=== PATIENT | female | born 1930 | race Caucasian/White ===

== ENCOUNTER 2020-01-11 10:30 | Observation (INO) | payer MEDICARE ==
[2020-01-11] VITALS (14 sets, daily range): BP systolic 111–173; BP diastolic 55–93
[~2020-01-11] VITALS: Ht 162.6 cm; Wt 81.6 kg
[2020-01-11] MEDS ORDERED: XANAX 0.25 MG0.25 MG PO (11:35)
[2020-01-11] MEDS ORDERED: AMITRIPTYLINE H10 M1 PO (11:35)
[2020-01-11] MEDS ORDERED: LIPITOR10 MG PO (11:36)
[2020-01-11] MEDS ORDERED: CHILDREN'S ASPI81 M1 PO (11:36)
[2020-01-11] MEDS ORDERED: LASIX 40 MG TAB40 MG PO (11:37)
[2020-01-11] MEDS ORDERED: ISOSORBIDE DINI30 MG PO (11:37)
[2020-01-11] MEDS ORDERED: LEVO-T100 MCG PO (11:38)
[2020-01-11] MEDS ORDERED: LISINOPRIL2.5 MG PO (11:38)
[2020-01-11] MEDS ORDERED: NITROSTAT0.3 MG SUBLING (11:39)
[2020-01-11] MEDS ORDERED: TOPROL XL50 MG PO (11:39)
[2020-01-11] MEDS ORDERED: CARAFATE 1 GM TA1 GM PO (11:40)
[2020-01-11] MEDS ORDERED: KLOR-CON 10 ER10 MEQ PO (11:40)
[2020-01-11 12:03] LABS: HEMATOCRIT 39.6 % (37.0-47.0); HEMOGLOBIN 13.4 gm/dL (12.0-15.0); MCH 28.7 pg (26.0-34.0); MCHC 33.7 g/dL (28.0-37.0); MCV 85.2 fL (80.0-100.0); MPV 10.9 fl. (7.2-11.1); RBC 4.65 mil/uL (4.20-5.00); RDW-CV 13.8 % (10.5-14.5); WBC 5.8 thou/uL (4.0-11.0)
[2020-01-11 12:11] LABS: ANION GAP 8 mmol/L (7-16); BUN 21 mg/dL (7-18); CALCIUM 8.7 mg/dL (8.5-10.1); CHLORIDE 102 mmol/L (98-107); CO2 30 mmol/L (21-32); CREATININE 0.9 mg/dL (0.6-1.3); GLUCOSE 94 mg/dL (70-99); POTASSIUM 4.7 mmol/L (3.5-5.1); SODIUM 140 mmol/L (136-145)
[2020-01-11 12:12] LABS: APTT 26.1 Seconds (25.0-31.3); PROTIME 10.7 Seconds (9.20-11.50)
[2020-01-11 12:15] LABS: ALBUMIN 3.5 g/dL (3.4-5.0); ALKALINE PHOSPHATASE 84 U/L (46-116); CHOLESTEROL 138 mg/dL (<200); HDL CHOLESTEROL 45 mg/dL (>40); LDL CHOLESTEROL 78 mg/dL (<100); SGOT 24 U/L (15-37); SGPT 26 U/L (30-65); TC:HDL 3.1 Ratio (Not establshd); TOTAL BILIRUBIN 0.8 mg/dL (<0.1-1.0); TOTAL PROTEIN 7.4 g/dL (6.4-8.2); TRIGLYCERIDE 78 mg/dL (<150); VLDL 16 mg/dL (<40)
[2020-01-11 12:19] LABS: SERUM ASSESSMENT Clear
--- NOTE | 2020-01-11 18:13 | NUR ---
PT ADMITTED TO ROOM 225 VIA CART FROM [facility] AT APPROXIMATELY 1700. REPORT RECEIVED FROM GUERITA ROLAND. PT ORIENTED TO ROOM AND CALL LIGHT. ADMISSION ASSESSMENT AND HISTORY COMPLETED. REFER TO CHARTING. PT A&0X4. DENIES ANY PAIN OR SHORTNESS OF BREATH AT THIS TIME. 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 ON RA SAT UPPER 90'S. PURE WICK IN PLACE PER PT REQUEST. RIGHT GROIN CATH ACCESS-SITE IS C/D/I WITH NO HEMATOMA NOTED. PT ON BEDREST UNTIL 1949. PT INSTRUCTED ON IMMOBILIZATION OF RIGHT LOWER EXTREMITY AND COMMUNICATES UNDERSTANDING OF TEACHING. POST CARDIAC CATH ASSESSMENT AND VITALS CHARTED. PT UP WITH SBA POST BEDREST. HOME MEDICATIONS RECONCILED. SON AT BEDSIDE AND UPDATED ON CURRENT PLAN OF CARE. IVF. MEDICATIONS PER JAN. PT STATES SHE LIVES AT HOME BY HER SELF AND HER SON DOESNT LIVE FAR AWAY AND CHECKS IN ON HER OCCASIONALLY. PT REPOSITIONS SELF. HOURLY ROUNDING OBSERVED. BED IN LOW POSITION. CALL LIGHT WITHIN REACH. WILL CONTINUE PLAN OF CARE.
[2020-01-12] VITALS: BP 111/51; BP 170/86
[2020-01-12 04:00] VITALS: BP 142/40
[2020-01-12 04:17] LABS: HEMATOCRIT 39.3 % (37.0-47.0); HEMOGLOBIN 13.2 gm/dL (12.0-15.0); MCHC 33.7 g/dL (28.0-37.0); MPV 11.2 fl. (7.2-11.1); RBC 4.56 mil/uL (4.20-5.00); RDW-CV 13.5 % (10.5-14.5); WBC 9.7 thou/uL (4.0-11.0)
[2020-01-12 04:45] LABS: ALBUMIN 3.1 g/dL (3.4-5.0); CALCIUM 8.1 mg/dL (8.5-10.1); CREATININE 0.8 mg/dL (0.6-1.3); TOTAL PROTEIN 6.8 g/dL (6.4-8.2); TROPONIN-I LEVEL 0.28 ng/mL (<0.06)
[2020-01-12 08:10] VITALS: BP 171/58
--- NOTE | 2020-01-12 11:12 | EKG ---
[place] [address] ELECTROCARDIOGRAM REPORT Name: AME BARROSO Room: [address] M.R.#: [id number] Admission: 01/11/20 Attend Phys: Fransico George Discharge: Date of : [birth year] Date of Service: 01/11/20 1108 Report #: [id number] THIS REPORT FOR: //name// [facility] Test Date: 2020-01-11 Test Time: 11:08:50 Pat Name: AME BARROSO Department: Room: [facility] Gender: F Impression Printer: : 1930 Requested By: Luisito Cerda Order Number: [id number] Mariia MD: Jermaine Umana Measurements Intervals [place] Rate: 65 P: 80 [place]: 239 QRS: -29 QRSD: 108 T: 83 QT: 447 QTc: 465 Interpretive Statements Sinus arrhythmia Ventricular premature complex Prolonged [place] interval Left ventricular hypertrophy Anterior ST elevation, probably due to LVH No previous ECG available for comparison Electronically Signed On 01-12-2020 11:11:12 FIRE EXTINGUISHER MECHANIC by Jermaine Umana [email or web address] <ELECTRONICALLY SIGNED> By: Jermaine Umana MD, FACC 01/12/20 1111 1108 1108 Jermaine Umana MD, FAC /EPI
--- NOTE | 2020-01-12 11:16 | EKG ---
[place] [address] ELECTROCARDIOGRAM REPORT Name: AME BARROSO Room: [address] M.R.#: [id number] Admission: 01/11/20 Attend Phys: Fransico George Discharge: Date of : [birth year] Date of Service: 01/11/20 1419 Report #: [id number] THIS REPORT FOR: //name// [facility] Test Date: 2020-01-11 Test Time: 14:19:01 Pat Name: AME BARROSO Department: Room: [facility] Gender: F Chronic Condition Nurse: NAINA : 1930 Requested By: Luisito Cerda Order Number: [id number] Mariia MD: Jermaine Umana Measurements Intervals [place] Rate: 95 P: 94 [place]: 217 QRS: -48 QRSD: 110 T: 104 QT: 386 QTc: 486 Interpretive Statements Sinus rhythm Prolonged [place] interval Anteroseptal infarct age indeterminate possible Premature atrial complex LVH with IVCD, LAD and secondary repol abnrm Borderline prolonged QT interval No previous ECG available for comparison Electronically Signed On 01-12-2020 11:15:06 [employer] FAC[employer]Y by Jermaine Umana [email or web address] <ELECTRONICALLY SIGNED> By: Jermaine Umana MD, FAC 01/12/20 1115 1419 1419 Jermaine Umana MD, FAC /EPI
--- NOTE | 2020-01-12 11:22 | EKG ---
[place] [address] ELECTROCARDIOGRAM REPORT Name: MAE BARROSO Room: [address] M.R.#: [id number] Admission: 01/11/20 Attend Phys: Fransico George Discharge: Date of : [birth year] Date of Service: 01/12/20819 Report #: [id number] THIS REPORT FOR: //name// [facility] Test Date: 2020-01-12 Test Time: 08:20:47 Pat Name: AME BARROSO Department: Room: [facility] Gender: F Casket Trimmer: : 1930 Requested By: Luisito Cerda Order Number: [id number] Reading MD: Jermaine Umana Measurements Intervals [place] Rate: 81 P: 85 [place]: 253 QRS: -43 QRSD: 106 T: 105 QT: 416 QTc: 483 Interpretive Statements Sinus rhythm Prolonged [place] interval Left anterior fascicular block LVH with secondary repolarization abnormality Delayed R-wave progression Artifact in lead(s) II,aVL,aVF,V1,V3,V4 No previous ECG available for comparison Electronically Signed On 01-12-2020 11:20:57 FAN INSTALLER by Jermaine Umana [email or web address] <ELECTRONICALLY SIGNED> By: Jermaine Umana MD, FACC 01/12/20 1120 9 9 Jermaine Umana MD, FACC /EPI
--- NOTE | 2020-01-12 11:33 | NUR ---
PT IS RESTING AT THIS TIME WITH FAMILY AT BEDSIDE. PT IS POST CATH AND TOLERATING WELL.PT VSS ON RA. BP ELEVATED WITH HEADACHE. PHYSICIAN AWARE. SR WITH 1ST DEGREE,BBB ON MONITOR. PT IVSL. PT IS SBA. PROGRESSING TOWARDS GOALS. NO FURTHER REQUESTS.
[2020-01-12 14:26] VITALS: BP 117/55
--- NOTE | 2020-01-12 15:14 | NUR ---
PT DCD TO HOME IN STABLE CONDITION.DC INSTRUCTIONS,FOLLOW UP INFORMATION,PRESCRIPTION AND CARE REVIEWED WITH PT AND PT REPORTS UNDERSTANDING WITHOUT FURTHER QUESTIONS. PT TAKEN BY WC TO FAMILY VEHICLE WITH ALL OF BELONGINGS ACCOMPANIED BY STAFF.
[2020-01-12] MEDS ORDERED: PLAVIX 75 MG TA75 MG PO (15:23)
--- NOTE | 2020-01-13 10:51 | CARD ---
[address] [address] CARDIAC CATH REPORT Name: AME BARROSO Room: [address] Emily M.R.#: [id number] Admission: 01/11/20 Attend Phys: Luisito Cerda MD, Discharge: 01/12/20 Date of : [birth year] Report #: [id number] THIS REPORT FOR: //name// cc: Jermaine Asher MD, Michael MD ~ THIS REPORT FOR: //name// APPROVED REPORT Study performed: 01/11/2020 12:09:33 Patient Details Patient Status: Out-Patient Room #: The patient is a 89 year-old female Event Personnel Luisito Cerda Bleach Boiler Puller, Erich Marcial SOFA INSPECTOR Monitor, Adilene Locke RN RN, Felix Liu RTR Scrub, Luisito Cerda Occupational Health Professional Procedures Performed Right femoral artery access, Left Heart Catheterization, ALBERT 1st Diagonal Artery, Hemostasis with Angioseal Indication Unstable angina Risk Factors Hypercholesterolemia, Hypertension Previous Procedures/Diagnoses Previous CABG Admission/Lab Medications/Medications given during procedure Oxygen Nasal cannula 2 l per min, Midazolam (Versed) IV 1 mg, Lidocaine Subcut 14 ml, Hydralazine (Apresoline) IV 10 mg, Angiomax IV bolus 12 ml, Angiomax Drip IV 28 ml per hr, Nitroglycerin IC 150 mcg Procedure Narrative The patient was brought electively to the Cardiac Catheterization Laboratory and was prepped and draped in a sterile manner. The right femoral was infiltrated with 2% Lidocaine subcutaneous anesthesia. A [place] 6 FR sheath was inserted into the right femoral artery. Coronary angiography was performed [place] [address] CARDIAC CATH REPORT Name: AME BARROSO Room: [address] [place] Rogers#: [id number] Admission: 01/11/20 Attend Phys: Luisito Cerda MD, Discharge: 01/12/20 Date of : [birth year] Report #: [id number] catheters. The right coronary system was accessed and visualized with a Diagnostic - JR4 catheter. The left coronary system was accessed and visualized with a Diagnostic - JL4 catheter. The left ventricle was accessed and visualized with a Diagnostic - STR PIG PRESSURES ONLY catheter. Left ventricular/Aortic Valve gradient assessed via catheter pullback. Pre-demployment femoral angiogram was performed . Closure device was deployed with a Fr Angioseal STS 6Fr. The patient tolerated the procedure well and there were no complications associated with the procedure. There was no hematoma. SVG TO THE RCA VISUALIZED WITH A AR MOD IM VISUALIZED WITH AN IM Intraoperative Conscious Sedation Sedation start time: 1249 Case end Time: 1349 Versed 1 mg Fluoro Time: 19.3 minutes Dose: DAP [id number] cGycm2 1817 mGy Contrast Type and Amount: Visipaque 580 ml Coronary Angiography The patient's coronary anatomy is right dominant. [place] Artery Percent Stenosis #1 widely patent STEWART graft to the LAD #2 widely patent saphenous vein graft to distal right coronary artery Diagnostic Cath Left Main 40% mid vessel narrowing LAD 100% mid LAD occlusion with 90% stenosis in the midportion of the prominent first diagonal Circumflex 50% mid vessel narrowing Right Coronary 90% tubular narrowing in the midportion of the dominant right coronary artery with reciprocal flow distally reflecting a patent graft to the distal right coronary artery Left Ventriculography Left Ventriculography was not performed. Hemodynamics The aortic pressure is 212/84 mmHg with a mean of 129 mmHg. The left ventricular pressure is 188/3 mmHg with a mean of mmHg. The left ventricular end diastolic pressure is 15 [place] [address] CARDIAC CATH REPORT Name: AME BARROSO Room: [address] [place] Rogers#: [id number] Admission: 01/11/20 Attend Phys: Luisito Cerda MD, Discharge: 01/12/20 Date of : [birth year] Report #: [id number] PCI Technique Lesion Anticoagulation was achieved with Angiomax. Patient was preloaded with Angiomax IV 12 ml. Percutaneous coronary intervention was performed on the first diagnonal branch segment. The lesion stenosis prior to intervention was 90% with PRIYANKA 3 flow. A 6FR XBLAD 3.5 SH Guide Catheter was used to engage the ostium. A IG: ProwaterFlex 180CM Interventional Guidewire was used to cross the lesion. BALLOON DILATION A Balloon catheter Trek RX 2.25 X 8 was inserted and inflated up to 10.00atm for 14seconds. Additional Inflation: 12.00atm for 9seconds. STENT DEPLOYMENT A stent Irwin RX Stent 2.3W5fnk2 was inserted and inflated up to 10.00atm for 12seconds. Additional Inflation: 10.00atm for 6seconds. POST STENT DEPLOYMENT BALLOON DILATION A Balloon catheter Trek RX 2.25 X 8 was inserted and inflated up to 10.00atm for 12seconds. Additional Inflation: 10.00atm for 8seconds. 10 TASHIA FOR 8 SEC Final angiography reveals 10 % stenosis with PRIYANKA 3 flow. STENT DEPLOYMENT A stent Pierce RX Stent 2.0X8mm was inserted and inflated up to 8.00atm for 10seconds. Additional Inflation: 9.00atm for 9seconds. Conclusion #1 significant coronary artery disease characterized by the following: A 40% mid left main coronary artery narrowing B 100% mid LAD occlusion with 90% stenosis of the midportion of the prominent first diagonal branch C 50% mid circumflex narrowing D 90% tubular narrowing in the midportion of the dominant right coronary artery with reciprocal flow distally reflecting a patent graft #2 graft study [place] [address] CARDIAC CATH REPORT Name: AME BARROSO Room: [address] [place] Rogers#: [id number] Admission: 01/11/20 Attend Phys: Luisito Cerda MD, Discharge: 01/12/20 Date of : [birth year] Report #: [id number] A widely patent STEWART graft to the mid LAD B widely patent saphenous vein graft to the distal right coronary artery #3 moderately severe systemic systolic hypertension #4 successful percutaneous coronary intervention with deployment of sequential drug-eluting stents at the site of 90% stenosis in the first diagonal branch of the LAD with 10% residual narrowing and PRIYANKA-3 flow to the distal vessel Recommendations Daily ASA with Plavix for at least one year Cardiac Risk Reduction Program Medications Administered Aspirin (any) Clopidogrel Diagnostic Cath Approved by: Luisito Cerda MD Date/Time: 01/13/2020 10:48:45 <ELECTRONICALLY SIGNED> By: Luisito Cerda MD, [facility] 01/13/20 1050 1050Luisito Cerda MD, FACC /INF
--- NOTE | 2020-01-13 11:31 | D ---
[address] [address] DISCHARGE SUMMARY Name: AME BARROSO Room: [address] [place] Rogers#: [id number] Admission: 01/11/20 Attend Phys: Luisito Cerda MD, Discharge: 01/12/20 Date of : [birth year] Report #: [id number] THIS REPORT FOR: //name// cc: Jermaine Asher MD, Michael MD ~ THIS REPORT FOR: //name// CC: Luisito Asher DATE OF SERVICE: 01/12/2020 FINAL DISCHARGE DIAGNOSES: 1. Unstable angina. 2. Coronary artery disease. 3. Hyperlipidemia. 4. Status post coronary artery bypass grafting. 5. Status post percutaneous coronary intervention of the prominent first diagonal branch of the LAD on 01/11/2020. 6. Hypertension. PROCEDURES: 01/11/2020 - left heart catheterization, selective coronary arteriography, aortocoronary saphenous vein bypass graft study, STEWART graft study, and percutaneous coronary intervention to the mid portion of the first diagonal branch of the LAD. The patient is a very pleasant active 89-year-old female with a history of coronary artery disease, status post remote coronary artery bypass grafting. More recently, she has demonstrated chest discomfort with exertion with a pattern of increasing frequency and severity. In the context of what appeared to reflect unstable angina, I recommended cardiac catheterization, which was undertaken on 01/11/2020. That study revealed significant coronary artery disease characterized by total occlusion in the mid LAD, total occlusion of the right coronary artery, and widely patent STEWART graft to the LAD and widely patent vein graft to the right coronary artery. Given this data, I elected to perform percutaneous coronary intervention at the high-grade lesion in the first diagonal branch of the LAD with which this having emanated prior to the total occlusion of the mid portion of the LAD. I deployed 2.0 x 8 mm [place] drug-eluting stents in the first diagonal with 10% residual narrowing and PRIYANKA 3 flow of the distal vessel. Troponin leatha inconsequentially to 0.28. The patient had no chest pain post-procedurally and ambulated in the hallways without difficulty with good hemostasis at the [place] [address] DISCHARGE SUMMARY Name: AME BARROSO Room: [address] [place] Rogers#: [id number] Admission: 01/11/20 Attend Phys: Luisito Cerda MD, Discharge: 01/12/20 Date of : [birth year] Report #: [id number] LABORATORY DATA: On 01/12/2020 revealed sodium of 138, potassium 4, BUN 16, creatinine 0.8, glucose 124. Hemoglobin 13.2, white blood cell count 9700 with 162,000 platelets. She ambulated in the hallways without difficulty. DISCHARGE MEDICATIONS: She was discharged to home on the following medications: Alprazolam 0.25 mg b.i.d., amitriptyline 10 mg b.i.d., aspirin 81 mg daily, atorvastatin 10 mg at bedtime, clopidogrel 75 mg daily with a 600 mg merly-procedural loading dose, furosemide 20 mg daily, isosorbide dinitrate 30 mg daily, L-thyroxine 100 mcg daily, lisinopril 2.5 mg 4 tablets or 10 mg daily, metoprolol succinate 50 mg b.i.d., potassium chloride 10 mEq 1 tablet daily, sucralfate of Carafate 1 gram b.i.d., and p.r.n. sublingual nitroglycerin. The patient is scheduled to return to see me on 02/09/2020 at 1300 at [facility] [place] office. Therefore, the patient is discharged to home in stable condition on the aforementioned medications with followup as iterated above. <ELECTRONICALLY SIGNED> By: Luisito Cerda MD, FACC 01/13/20 1131 1257 1358Luisito Cerda MD, FACC /nt
== END 2020-01-12 15:50 | disposition home or self-care (01) ==
LOC: M.CL 10:30 → M.TBA-CV 14:08 → M.2W 17:36
PROVIDERS: ADMIT Internal Medicine
DX: I25.110 Atherosclerotic heart disease of native coronary artery with unstable angina pectoris (principal); E78.5 Hyperlipidemia, unspecified; I10 Essential (primary) hypertension; E78.00 Pure hypercholesterolemia, unspecified; Z95.1 Presence of aortocoronary bypass graft